=== PATIENT | female | born 1955 | race Caucasian/White ===

== ENCOUNTER 2021-11-26 12:29 | Emergency (ER) | payer OTHER ==
[2021-11-26 13:09] LABS: INR 1.05 (0.9-1.2); PROTHROMBIN TIME 13.4 SECONDS (11.9-13.9); PTT 34.1 SECONDS (24.9-34.6)
[2021-11-26 13:26] LABS: BILIRUBIN - TOTAL 0.4 mg/dL (0.2-1.0); BUN/CREAT RATIO (CALC) 15.7 RATIO; CREATININE 0.7 mg/dL (0.51-0.95); GLOBULIN (CALCULATION) 3.7 g/dL; POTASSIUM 3.9 mmol/L (3.5-5.1); TOTAL PROTEIN 7.7 g/dL (6.4-8.2)
[2021-11-26 14:14] LABS: CORONAVIRUS 2019 SARS-COV-2 NEGATIVE (NEGATIVE); INFLUENZA A NAA NEGATIVE (NEGATIVE)
[2021-11-26 16:17] LABS: BASOPHIL 0.6 % (0-2); EOSINOPHIL 0.8 % (0-7); HCT 45.8 % (37.0-47.0); HGB 15.1 g/dl (12.5-16.0); LYMPHOCYTE 29.5 % (15-48); MCH 30.3 pg (25.0-31.0); MCV 91.8 fL (78.0-100.0); MONOCYTE 6.9 % (0-12); MPV 10.6 fL (6.0-9.5); NRBC 0; PLT 308 K/uL (150-400); RBC 4.99 M/uL (4.20-5.40); RDW 13.2 % (11.5-14.0); WBC 9.4 K/uL (4.0-10.5)
== END 2021-11-26 17:14 | disposition left against medical advice (07) ==
LOC: FER 12:29
PROVIDERS: Nurse Practitioner Family
DX: M25.512 Pain in left shoulder (principal); R07.81 Pleurodynia; M54.9 Dorsalgia, unspecified; R10.13 Epigastric pain; Z53.29 Procedure and treatment not carried out because of patient's decision for other reasons; Z20.822 Contact with and (suspected) exposure to COVID-19
CPT/HCPCS: 36415; 71045; 80053; 84484; 85025; 85610; 85730; 93005; U0002